=== PATIENT | male | born 1970 | race Caucasian/White ===

== ENCOUNTER 2016-09-06 08:32 | Emergency (ER) | payer SELFPAY ==
--- NOTE | ~2016-09-06 | ER ---
PATIENT'S NAME: BROOK XAVIER [facility] AGE: 46 Y [address] ROOM: [place] [address] LOCATION: [facility] ADMIT DATE: 09/06/2016 ER/Outpatient Report DISCHARGE DATE: 09/06/2016 FAMILY PHYSICIAN: VITOR MORENO ATTENDING PHYSICIAN: Cherrie Blancas Time of Arrival: 0832 hours. Time of Evaluation: 0850 hours. IDENTIFICATION: A 46-year-old male. CHIEF COMPLAINT: Left hand pain. HISTORY OF PRESENT ILLNESS: The patient is a 46-year-old male, who was seen by Dr. Farrell today and sent here per Dr. Spears. 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 Since night, he has had throbbing left arm pain and now his hand feels numb and tingly with increase in swelling and not able to make a fist and flex completely. He was evaluated in [place] and referred here for possible tenosynovitis. The patient has had no fever or chills. He is right handed. No other problems or concerns. ALLERGIES: NO KNOWN DRUG ALLERGIES. CURRENT MEDICATIONS: 1. Claritin [id number]. 2. Jessica. 3. Motrin. MEDICAL PROBLEMS: Allergic rhinitis. Last tetanus was today in [place]. PRIOR SURGERIES: Rotator cuff, right shoulder in 2009. Umbilical hernia repair. SOCIAL HISTORY: The patient lives in [place]. Doing construction. Tobacco use, 1/2 pack per day for 32 years. Alcohol use, rare. Drug use, denies. PATIENT'S NAME: BROOK XAVIER [facility] AGE: 46 Y [address] ROOM: [place] [id number] LOCATION: [facility] ADMIT DATE: 09/06/2016 ER/Outpatient Report DISCHARGE DATE: 09/06/2016 FAMILY PHYSICIAN: VITOR MORENO ATTENDING PHYSICIAN: Cherrie Blancas FAMILY HISTORY: Positive for rheumatoid arthritis. REVIEW OF SYSTEMS: All systems reviewed and negative other than what is noted in the HPI. PHYSICAL EXAMINATION: VITAL SIGNS: Weight 80.2 kg, blood pressure 147/94, pulse 81, respirations 20, temperature 97.2, and saturations 95%. GENERAL: A 46-year-old male in no acute distress. HEENT: Head: Normocephalic and atraumatic. Eyes: Pupils equal and reactive to light and accommodation. Extraocular movements intact. LUNGS: Clear to auscultation. HEART: Regular rate and rhythm. ABDOMEN: Soft, nondistended, and nontender. SKIN: [place], warm, and dry. EXTREMITIES: Right upper extremity: Full range of motion. No deformities noted. Left upper extremity: Decreased range of motion. He is unable to flex and make a fist with all of his fingers. He also has decreased range of motion with flexion of his wrist. He has minimal tenderness to palpation and swelling over his palm. He has a small 2 mm superficial laceration where he had a barbed wire injury over the thenar eminence and he has a small puncture wound on his right index finger over the distal aspect. No surrounding erythema. He has no erythema. Minimal tenderness. He, with passive flexion, has no significant increase in pain. No lymphangitic spread. EMERGENCY DEPARTMENT COURSE: Hemoglobin 10.3 with 92% segs. Sedimentation rate is 10. CRP 2.13. Dr. Spears was notified of his arrival and did come to evaluate the patient and requested an MRI. Left hand x-ray, 3-view, no acute fracture. He does have soft tissue swelling noted. Left hand and wrist MRI showed nonspecific soft tissue edema of the left hand and wrist, could reflect cellulitis, no evidence of abscess. This report was relayed to Dr. Spears, who recommended at this time there are no signs of infection and recommended ice, elevate, compression, ibuprofen 600 mg 4 times daily with food for 1 week and follow up with Dr. Spears next week, follow up with Dr. Farrell in 1 to 2 weeks. The patient does have a family history of rheumatoid arthritis. He himself has never been diagnosed. His sedimentation rate is 10, but I did recommend that he follow up with Dr. Farrell for possible rheumatoid factor. The patient understands and agrees, and all questions have been answered. CHERRIE BLANCAS MD PATIENT'S NAME: BROOK XAVIER [facility] AGE: 46 Y [address] ROOM: [place] [address] LOCATION: [facility] ADMIT DATE: 09/06/2016 ER/Outpatient Report DISCHARGE DATE: 09/06/2016 FAMILY PHYSICIAN: VITOR MORENO ATTENDING PHYSICIAN: Cherrie Blancas/feliz /[id number] d: 09/06/162206 t: 09/10/16 0649, OUTPATIENT REPORT
--- NOTE | ~2016-09-06 | CON ---
PATIENT'S NAME: BROOK LANTIGUA [facility] AGE: 46 Y [address] ROOM: [place], [place] [address] LOCATION: [facility] ADMIT DATE: 09/06/2016 Consultation DISCHARGE DATE: 09/06/2016 FAMILY PHYSICIAN: PHYSICIAN, NO ATTENDING PHYSICIAN: Cherrie Brown DATE OF CONSULTATION: 09/06/2016 REFERRING PHYSICIAN: Jose E Spears MD CHIEF COMPLAINT: Left wrist and hand pain. PRESENT ILLNESS: Mr. Lantigua is a pleasant 46-year-old, right-hand dominant gentleman who presents today to the emergency room for evaluation of his left wrist and hand. The patient reports that on Friday of this week he cut himself on a barbed wire fence. This was in the mid palm region. There was no complication with the healing of this. The following day, he traumatized his index finger. As of yesterday afternoon, he developed severe pain and swelling in the left hand. He was brought to the emergency room in [place] where he was seen and evaluated. There was a concern for flexor tenosynovitis. He was subsequently sent to [facility] for orthopedic evaluation. X-rays were within normal limits. The patient reports that at baseline, he does not go to the doctor, though under the current circumstances he was having such severe pain and discomfort that he felt compelled to be seen and evaluated. 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 He denies any previous problems of this nature with the left hand. He has reported swelling in the right wrist and hand in the past, which he thinks may be due to rheumatoid arthritis. He reports that his father did have this. Currently, the patient denies any constitutional symptoms such as fever, chills, or night sweats. He also denies any dizziness, chest pain, shortness of breath, blurred vision, nausea, vomiting, or diarrhea. REVIEW OF SYSTEMS: A 10-point review of systems is otherwise mentioned above in the HPI. The patient's issue is musculoskeletal, and it pertains to left upper extremity. There is pain, swelling, and tenderness to palpation to the volar aspect of the left wrist. PAST MEDICAL HISTORY: Includes hypertension. PAST SURGICAL HISTORY: Previously what appears to be right rotator cuff surgery. PATIENT'S NAME: BROOK LANTIGUA [facility] AGE: 46 Y [address] ROOM: [place] [address] LOCATION: [facility] ADMIT DATE: 09/06/2016 Consultation DISCHARGE DATE: 09/06/2016 FAMILY PHYSICIAN: PHYSICIAN, NO ATTENDING PHYSICIAN: Cherrie Brown ALLERGIES: NO KNOWN DRUG ALLERGIES. MEDICATIONS: Currently include, 1. Claritin. 2. Jessica. 3. Blood pressure medicine. Otherwise unknown. SOCIAL HISTORY: The patient occasionally consumes alcohol. He is a smoker. He denies any illicit drug use. He works on a farm. FAMILY HISTORY: Includes hypertension on the father's side. PHYSICAL EXAMINATION: GENERAL: The patient is awake, alert, and oriented x3. He is in no acute distress. He is actively conversing with me at the bedside. VITAL SIGNS: Weight of 80.2 kg. Temperature is 97.2, pulse of 81, respiratory rate of 20, blood pressure 147/94, and SpO2 of 95% on room air. HEENT: Normocephalic and atraumatic. Extraocular movements are intact. PERRLA. Moist mucous membranes. The oropharyngeal airway is clear. NECK: Supple. Trachea is in the midline. ABDOMEN: Soft, nontender, and nondistended. CARDIOVASCULAR: Regular rate and rhythm. CHEST: Normal. Symmetric respiration bilaterally. MUSCULOSKELETAL: Left upper extremity: Focal examination of the patient's left upper extremity reveals he is grossly neurologically intact distally. There is a palpable radial pulse. There is swelling and tenderness at the wrist and hand. There does not appear to be any fluctuance. There are no active wounds in the palmar surface of the hand. Sensation is intact to light touch to the AIN/PIN/median/radial/ulnar nerve distributions. The patient reports no real discomfort with passive range of motion of the wrist. There appears to be more pain with active range of motion of the wrist and hand. There is no evidence of Kan[place] signs along the flexor tendon sheaths. Right upper extremity: Focal examination of the patient's right upper extremity reveals that he is grossly neurologically intact distally. Compartments of the arm, forearm, and hand are soft bilaterally. Sensation is intact to light touch, AIN/PIN/median/radial/ulnar nerve distribution. Palpable radial pulse and good capillary refill in the digits. There is no difficulty with active or passive range of motion of his shoulder, elbow, PATIENT'S NAME: BROOK LANTIGUA [facility] AGE: 46 Y [address] ROOM: [place], [place] [address] LOCATION: [facility] ADMIT DATE: 09/06/2016 Consultation DISCHARGE DATE: 09/06/2016 FAMILY PHYSICIAN: PHYSICIAN, NO ATTENDING PHYSICIAN: Cherrie Brown forearm, wrist, and hand on this side. IMAGING: Plain radiographs of the left hand revealed evidence of soft tissue swelling at the level of the wrist and mid palm. LABORATORY VALUES: CRP is 2.13. CBC is 10.3, hemoglobin of 14.7, hematocrit 44.6, and platelet count 332. IMPRESSION: 1. Rheumatoid flare of left wrist and hand versus septic tenosynovitis of the flexor compartment at the level of the wrist. PLAN: I had a long discussion with the patient today regarding his left upper extremity. There is significant swelling in the palm and wrist. There is pain with flexion at the wrist. He does not have any [place] signs at the flexor tendon sheath to the left hand, though there is exquisite tenderness and swelling at the volar aspect of the wrist proper. I would like to rule out infection. I have ordered a stat MRI of the left wrist and hand to rule out a collection. I explained to the patient in the event that we need to go to the operating room, I would open the left wrist and perform an irrigation and debridement procedure of the flexor tendon sheaths. I discussed the risks, benefits, and alternatives of pursuing a surgical intervention with the patient in detail. I discussed the risks of anesthesia, infection, bleeding, and injury to neurovascular structures about the left upper extremity. He expressed understanding of this. He is agreeable to proceeding with this if necessary. I will await the results of the MRI. He will be nonweightbearing on the left upper extremity for now. He may rest, ice, and elevate it. We will make a decision based upon the results of the MRI going forward. MD ADRIANA SALCEDO/feliz /[id number] d: 09/06/16 1809 t: 09/09/16 08, CONSULTATION REPORT
[2016-09-06 09:24] LABS: HEMATOCRIT 44.6 % (37.0-53.0); HEMOGLOBIN 14.7 g/dL (12.0-17.0); MCH 30.7 pg (27.0-34.0); MCV 93.1 fl (83.0-98.0); PLATELET COUNT 332 K/uL (150-450); RBC 4.79 M/uL (4.00-6.00); WBC 10.3 K/uL (4.0-11.0)
[2016-09-06 10:00] LABS: BANDED NEUTROPHIL # 0.5 K/uL (0.0-0.1); BANDED NEUTROPHILS % 5 %; LYMPHOCYTE # 0.2 K/uL (0.8-4.0); LYMPHOCYTE % 2 %; MONOCYTE # 0.1 K/uL (0.0-1.0); SEGMENTED NEUTROPHIL # 9.5 K/uL (1.4-9.0); SEGMENTED NEUTROPHIL % 92 %
== END 2016-09-06 13:30 | disposition disaster alternative care site (69) ==
LOC: GMED 08:32
PROVIDERS: Family Medicine
DX: M79.642 Pain in left hand (principal); M25.532 Pain in left wrist